=== PATIENT | male | born 1990 | race Two or more races ===

== ENCOUNTER 2019-08-24 16:02 | Emergency (ER) | payer OTHER ==
[2019-08-24 16:38] LABS: ABS Eosinophils 0.1 10^3/ul (0-0.6); ABS Lymphocytes 1.8 10^3/ul (1.0-4.8); ABS Monocytes 0.4 10^3/ul (0-0.8); ABS Neutrophils 3.4 10^3/ul (1.5-7.7); Eosinophil % 1.9 %; Hematocrit 46 % (42-52); Hemoglobin 15.9 g/dL (14.0-18.0); Lymphocyte % 31.1 %; Mean Corpuscular HGB Conc 35 g/dL (31-36); Mean Corpuscular Hemoglobin 31 pg (27-31); Mean Corpuscular Volume 90 fL (80-94); Mean Platelet Volume 9.4 fL (7.4-10.4); Nucleated Red Blood Cells % 0.2; Platelet Count 184 10^3/uL (150-450); Red Blood Count 5.09 10^6 /uL (4.18-5.48); Red Cell Distribution Width 13 % (10-15); White Blood Count 5.7 10^3/uL (3.5-10.8)
[2019-08-24 16:49] LABS: Urine Appearance Clear; Urine Bilirubin Negative (Negative); Urine Blood Negative (Negative); Urine Color Yellow; Urine Glucose Negative (Negative); Urine Ketones Negative (Negative); Urine Nitrite Negative (Negative); Urine Protein Negative (Negative); Urine Specific Gravity 1.018 (1.010-1.030); Urine Urobilinogen Negative (Negative)
[2019-08-24 16:54] LABS: ALT 24 U/L (7-52); Albumin 4.6 g/dL (3.2-5.2); Albumin/Globulin Ratio 1.6 (1-3); Alkaline Phosphatase 51 U/L (34-104); BUN/Creatinine Ratio 15.2 (8-20); Blood Urea Nitrogen 15 mg/dL (6-24); CO2 Carbon Dioxide 27 mmol/L (22-32); Calcium 9.4 mg/dL (8.6-10.3); Chloride 104 mmol/L (101-111); EGFR African American 107.4 (>60); EGFR Non-African American 88.8 (>60); Globulin 2.8 g/dL (2-4); Glucose 108 mg/dL (70-100); Sodium 138 mmol/L (135-145); Total Protein 7.4 g/dL (6.4-8.9)
[2019-08-24 17:05] LABS: Urine Benzodiazepine Screen None Detected (None Detect); Urine Opiates Screen None Detected (None Detect)
--- NOTE | 2019-08-24 17:06 | ED ---
Psychiatric Complaint - HPI Summary HPI Summary: 28 year old M presenting to [facility] complains of an episode of suicidal ideation on 08/19/19. 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 Patient states he was accused of something in September 2018. He states he thought that the evidence was clearly in his favor. However, last 08/19/19, he found out that he was found guilty by [place]. He will be expelled 08/26/19. He states he was brought to [facility] on 08/19/19 by [facility] and his legal recovery specialist for a mental health check. He states that after this check, he was instantly banned from campus. He states that he was asked to walk off campus by the mental health provider at [facility]. While he was walking off campus to [facility], he states he had a brief, [place]. He states he had his friend pick him up from [facility]. He states he and his friends met up for dinner 08/19/19 evening. Patient states that 08/19/19 evening, he was devastated, was crying a lot, and ended up staying the night at his friend's house. On Friday08/20/19, patient states he felt useless, was crying hard ("I felt paralyzed") and was shaking. On Friday08/21/19, he states he wanted to file a request to stay on campus but his legal recovery specialist advised against it because patient wasn't in the right state of mind. On Friday08/22/19, patient states he was feeling better. On Friday08/23/19, patient states he talked to skoog operator at crisis center which did not help. Today 08/24/19, patient states he feels better but was recommended to come here by his legal recovery specialist. He states he lives off campus. Patient denies SI/HI currently. Denies PMHx SI, suicidal attempt, psychiatric admission. Denies Fhx SI. Denies PMHx asthma, thyroid disease. Denies surgical Hx. Does not take daily medications. Vital signs at triage: HR 98 BPM, BP 128/87, O2 sat 95% Home Medications Medication Instructions Recorded Confirmed Type NK [No Home Medications Reported] 11/12/18 08/24/19 History - History Of Current Complaint Chief Complaint: EDMentalHealth Time Seen by Provider: 08/24/19 16:11 Hx Obtained From: Patient Onset/Duration: Lasting Minutes, Resolved Timing: Constant Severity Initially: Mild Severity Currently: None Character: Frustrated Aggravating Factor(s): Recent Stress Alleviating Factor(s): Other - friends Associated Signs And Symptoms: Positive: Negative Has Suicidal: Denies: Thoughts Has Homicidal: Denies: Thoughts - Allergies/Home Medications Allergies/Adverse Reactions: Allergies Allergy/AdvReac Type Severity Reaction Status Date / Time lactose Allergy GI Upset Verified 11/20/18 13:08 PMH/Surg Hx/FS Hx/Imm Hx Previously Healthy: Yes Endocrine/Hematology History: Denies: Hx Thyroid Disease Respiratory History: Denies: Hx Asthma Psychiatric History: Reports: Other Psychiatric Issues/Disorders - NEG: SI, psychiatric admission Denies: Hx Suicide Attempt - Surgical History Surgery Procedure, Year, and Place: none Infectious Disease History: No Infectious Disease History: Denies: Traveled Outside the [place] in Last 30 Days - Family History Known Family History: Positive: Other - NEG: hx suicide - Social History Occupation: Student Lives: Dormitory/Roommates Alcohol Use: Occasionally Substance Use Type: Reports: None Hx Tobacco Use: No Smoking Status (MU): Never Smoked Tobacco Review of Systems Negative: Fever Cardiovascular: Negative Respiratory: Negative Gastrointestinal: Negative Musculoskeletal: Negative Skin: Negative Neurological: Negative Positive: Other - NEG: SI/HI, upset about decision that he will be expelled All Other Systems Reviewed And Are Negative: Yes Physical Exam - Summary Physical Exam Summary: Appearance: Well-appearing, no pain distress, well-nourished Skin: Warm, color reflects adequate perfusion, dry Head: Normal Head/Face inspection, atraumatic Eyes: Conjunctiva clear ENT: Normal inspection Neck: Supple, no nodes, no JVD Respiratory: Lungs clear, normal breath sounds, no respiratory distress Cardio: RRR, No murmur, pulses normal, brisk capillary refill Musculoskeletal: Strength Intact/ROM intact, no calf tenderness, no edema. Psychological: good eye contact, smiles Neuro: Alert, muscle tone normal, no focal deficit Triage Information Reviewed: Yes Vital Signs On Initial Exam: Initial Vitals Temp Pulse Resp BP Pulse Ox 97.4 F 99 18 128/87 95 08/24/19 16:04 08/24/19 16:04 08/24/19 16:04 08/24/19 16:04 08/24/19 16:04 Vital Signs Reviewed: Yes Procedures - Sedation Patient Received Moderate/Deep Sedation with Procedure: No Diagnostics - Vital Signs Vital Signs Temp Pulse Resp BP Pulse Ox 08/24/19 16:04 97.4 F 99 18 128/87 95 - Laboratory Lab Results: Lab Results 08/24/19 Range/Units 16:22 WBC 5.7 (3.5-10.8) 10^3/uL RBC 5.09 (4.18-5.48) 10^6 /uL Hgb 15.9 (14.0-18.0) g/dL Hct 46 (42-52) % MCV 90 (80-94) fL MCH 31 (27-31) pg MCHC 35 (31-36) g/dL RDW 13 (10-15) % Plt Count 184 (150-450) 10^3/uL MPV 9.4 (7.4-10.4) fL Neut % (Auto) 58.5 % Lymph % (Auto) 31.1 % [place] % (Auto) 7.8 % Eos % (Auto) 1.9 % Baso % (Auto) 0.7 % Absolute Neuts (auto) 3.4 (1.5-7.7) 10^3/ul Absolute Lymphs (auto) 1.8 (1.0-4.8) 10^3/ul Absolute Monos (auto) 0.4 (0-0.8) 10^3/ul Absolute Eos (auto) 0.1 (0-0.6) 10^3/ul Absolute Basos (auto) 0.0 (0-0.2) 10^3/ul Absolute Nucleated RBC 0.0 10^3/ul Nucleated RBC % 0.2 Result Diagrams: 08/24/19 16:22 08/24/19 17:36 Lab Statement: Any lab studies that have been ordered have been reviewed, and results considered in the medical decision making process. Re-Evaluation - Re-Evaluation First Eval Re-Evaluation Time: 16:30 Comment: patient is medically cleared for MHE Course/Dx - Course Course Of Treatment: 28 year old M presenting to [facility] complains of an episode of suicidal ideation on 08/19/19 after finding out that he was going to be expelled from [place]. He denies SI/HI currently. Upon exam, the patient is well-appearing and in no pain distress. Bloodwork results with no significant abnormalities except for glucose 108. Urinalysis results with no significant abnormalities. Toxicology results with no significant abnormalities. The patient will be signed out to Dr. Ch upon shift change on 08/24/19 at 22:00 , awaiting MHE and pending disposition. - Differential Dx/Clinical Impression Differential Diagnosis/HQI/PQRI: Positive: Anxiety, Depression, Suicidal Ideation Provider Diagnosis: Depressive disorder Discharge ED - Sign-Out/Discharge Documenting (check all that apply): Sign-Out Patient Signing out patient TO: Patrick Ch - 08/24/19 at 22:00, awaiting MHE and pending disposition - Discharge Plan Condition: Stable Disposition: HOME Referrals: No Primary Care Phys,NOPCP [Primary Care Provider] - - Billing Disposition and Condition Condition: STABLE Disposition: Home - Attestation Statements Document Initiated by Scribe: Yes Documenting Scribe: Diana Goodman Provider For Whom Makayla is Documenting (Include Credential): Ernestina Persaud MD Scribe Attestation: Diana Cornejo scribed for Ernestina Persaud MD on 08/25/19 at 0159. Scribe Documentation Reviewed: Yes Provider Attestation: The documentation as recorded by the Diana paulson accurately reflects the service I personally performed and the decisions made by me, Ernestina Persaud MD Status of Scribe Document: Viewed
[2019-08-24 17:10] LABS: Anion Gap 7 mmol/L (2-11)
[2019-08-24 17:21] LABS: Acetaminophen < 15 mcg/mL; Alcohol < 10 mg/dL (<10); Salicylate < 2.50 mg/dL (<30)
[2019-08-24 17:43] LABS: TSH (Thyroid Stimulating Horm) 1.16 mcIU/mL (0.34-5.60)
[2019-08-24 19:00] LABS: Potassium Redraw 4.4 mmol/L (3.5-5.0)
--- NOTE | 2019-08-24 22:12 | ED ---
Progress - Progress Note Progress Note: Pt is a signout from Dr. Persaud at 2200 on 08/24/19 pending MHE and disposition. Re-Evaluation - Re-Evaluation First Eval Re-Evaluation Time: 23:08 Change: Unchanged Comment: Pt will be d/c'ed with dx of depressive disorder. Course/Dx - Course Course Of Treatment: Patient was signed out from Dr. Ramos pending mental health evaluation. Mental health evaluation was performed and the recommended outpatient follow-up. Patient was discharged - Diagnoses Provider Diagnoses: Depressive disorder Discharge ED - Sign-Out/Discharge Documenting (check all that apply): Patient Departure, Receiving Sign-Out Receiving patient FROM: Ernestina Persaud - Discharge Plan Condition: Stable Disposition: HOME Referrals: No Primary Care Phys,NOPCP [Primary Care Provider] - - Billing Disposition and Condition Condition: STABLE Disposition: Home - Attestation Statements Document Initiated by Scribe: Yes Documenting Scribe: Leeanne Menjivar Provider For Whom Scribe is Documenting (Include Credential): Patrick Ch MD. Scribe Attestation: Leeanne Cornejo, tonyed for Patrick Ch MD. on 08/25/19 at 0247. Scribe Documentation Reviewed: Yes Provider Attestation: The documentation as recorded by the Leeanne paulson accurately reflects the service I personally performed and the decisions made by Patrick negrete MD. Status of Scribe Document: Viewed
[2019-08-24 22:44] VITALS: BP 143/91
== END 2019-08-24 22:42 | disposition home or self-care (01) ==
LOC: ED 16:02
DX: F32.9 Major depressive disorder, single episode, unspecified (principal)
CPT/HCPCS: 36415; 80053; 80307; 80320; 80329; 81003; 84443; 85025; 99284; G0480